=== PATIENT | female | born 1980 | race Hispanic/Latino ===

== ENCOUNTER 2016-09-22 22:58 | Emergency (ER) | payer OTHER ==
[2016-09-22 22:58] VITALS: BMI 25.7
[2016-09-22 23:04] VITALS: RESP 18; TEMP 98.6
--- NOTE | 2016-09-22 23:39 | ED PDOC ---
Arrival/HPI - General Chief Complaint: Female Genitourinary Time Seen by Provider: 09/22/16 23:11 Historian: Patient - History of Present Illness Narrative History of Present Illness (Text): 09/22/16 23:20 Génesis Hurley is a 36 year old female, currently 18 weeks , P:2 A :1, whose past medical history includes seizures (on Topamax), who presents to the ED complaining of scanty vaginal spotting earlier,none now. Patient states tonight when she went to the bathroom she noted some light red vaginal spotting. Patient denies any abdominal pain/cramping, back pain, nausea, vomiting, diarrhea, fever, chills, headache, dizziness, or any other complaints. Time/Duration: Other (tonight) Symptom Onset: Gradual Symptom Course: Unchanged Activities at Onset: Light Context: Home Past Medical History - Provider Review Nursing Documentation Reviewed: Yes - Tetanus Immunization Tetanus Immunization: Unknown - Neurological Hx Seizures: Yes - Psychiatric Hx Depression: No Hx Emotional Abuse: No Hx Physical Abuse: No Hx Substance Use: No Family/Social History - Physician Review Nursing Documentation Reviewed: Yes Family/Social History: Unknown Family HX Smoking Status: no Hx Alcohol Use: No Hx Substance Use: No Hx Substance Use Treatment: No Allergies/Home Meds Allergies/Adverse Reactions: Allergies No Known Allergies Allergy (Verified 08/13/12 18:11) Home Medications: Home Meds Medication Instructions Recorded Confirmed [id number] Every Other Day 08/13/12 08/13/12 Topiramate [Topamax] 200 mg PO 08/13/12 Review of Systems - Physician Review All systems were reviewed & negative as marked: Yes - Review of Systems Constitutional: Normal. absent: Fevers Eyes: Normal ENT: Normal Respiratory: Normal. absent: SOB, Cough Cardiovascular: Normal. absent: Chest Pain Gastrointestinal: Normal. absent: Abdominal Pain, Diarrhea, Nausea, Vomiting Genitourinary Female: Vaginal Bleeding (+vaginal spotting). absent: Frequency, Urine Output Changes Musculoskeletal: Normal. absent: Back Pain, Neck Pain Skin: Normal. absent: Rash Neurological: Normal. absent: Headache, Dizziness Endocrine: Normal Hemo/Lymphatic: Normal Psychiatric: Normal Physical Exam Vital Signs Reviewed: Yes Vital Signs Temp Pulse Resp BP Pulse Ox 09/23/16 02:45 96 H 18 101/66 98 09/22/16 23:00 98.6 F 91 H 18 108/70 99 Temperature: Afebrile Blood Pressure: Normal Pulse: Regular Respiratory Rate: Normal Appearance: Positive for: Well-Appearing, Non-Toxic, Comfortable Pain Distress: None Mental Status: Positive for: Alert and Oriented X 3 - Systems Exam Head: Present: Atraumatic, Normocephalic Pupils: Present: PERRL Extroacular Muscles: Present: EOMI Conjunctiva: Present: Normal Mouth: Present: Moist Mucous Membranes Neck: Present: Normal Range of Motion Respiratory/Chest: Present: Clear to Auscultation, Good Air Exchange. No: Respiratory Distress, Accessory Muscle Use Cardiovascular: Present: Regular Rate and Rhythm, Normal S1, S2. No: Murmurs Abdomen: Present: Normal Bowel Sounds. No: Tenderness, Distention, Peritoneal Signs Back: Present: Normal Inspection Upper Extremity: Present: Normal Inspection. No: Cyanosis, Edema Lower Extremity: Present: Normal Inspection. No: Edema Neurological: Present: GCS=15, CN II-XII Intact, Speech Normal Skin: Present: Warm, Dry, Normal Color. No: Rashes Psychiatric: Present: Alert, Oriented x 3, Normal Insight, Normal Concentration Medical Decision Making ED Course and Treatment: 09/22/16 23:20 Impression: 36 year old female c/o light vaginal spotting tonight Differential Diagnosis included but are not limited to: threatened miscarriage Plan: -- US Transvaginal -- Labs, Beta-HCG, bood type and screen -- Reassess and disposition Progress Notes: 09/23/16 01:05 Reviewed sono, US Transvaginal shows: Evaluation of the pelvis reveals a single intrauterine with a cephalic presentation. The placenta is posterior and free of the cervical os. The cervix measures 4.4 cm in length and is closed. measurements correspond to an estimated gestational age of 18 weeks 0 days. BPD 4 mm AC 11.4 mm HC 14.9 mm FL 2.7 mm cardiac activity is identified with a heart rate of 137 beats per minute. 2.6 cm left ovarian cyst. Right ovary not visualized. IMPRESSION: Single live IUP as above. Limited study. Followup imaging recommended. 09/23/16 02:30 On reevaluation the patient feels better and is in no acute distress. I have discussed the results and plan with the patient, who expresses understanding. Patient given the opportunity to ask question, all questions were answered and there is agreement with the plan to discharge the patient home. Patient is stable for discharge. Patient was instructed to follow up with physician/clinic in 1-2 days or return if symptoms persist/worsen or new concerning symptoms arise. - Lab Interpretations Lab Results: 09/22/16 23:41 09/22/16 23:41 Lab Results 09/23/16 00:20: Blood Type Confirm O POSITIVE 09/23/16 00:00: Blood Type O POSITIVE, Antibody Screen Negative, BBK History Checked No verified bt 09/22/16 23:41: WBC 8.9 D, RBC 3.87, Hgb 11.1 L, Hct 33.6 L, MCV 86.8, MCH 28.7 , MCHC 33.0, RDW 13.0, Plt Count 212, MPV 9.4 09/22/16 23:41: Beta HCG, Quant 13778.00 H 09/22/16 23:41: Sodium 137, Potassium 3.7, Chloride 105, Carbon Dioxide 22, Anion Gap 14, BUN 9, Creatinine 0.6, Est GFR ( Amer) > 60, Est GFR (Non- Af Amer) > 60, Random Glucose 109, Calcium 8.9, Total Bilirubin 0.2, AST 54 H, ALT 67 H, Alkaline Phosphatase 64, Total Protein 6.7, Albumin 3.5, Globulin 3.2 , Albumin/Globulin Ratio 1.1 I have reviewed the lab results: Yes - RAD Interpretation Radiology Orders: 09/22/16 23:27 AGE [US] Stat Underwriting Intern: Radiologist - Scribe Statement The provider has reviewed the documentation as recorded by the Viki Tellez Provider Scribe Attestation: All medical record entries made by the Scribashok were at my direction and personally dictated by me. I have reviewed the chart and agree that the record accurately reflects my personal performance of the history, physical exam, medical decision making, and the department course for this patient. I have also personally directed, reviewed, and agree with the discharge instructions and disposition. Disposition/Present on Arrival - Present on Arrival Any Indicators Present on Arrival: No History of DVT/PE: No History of Uncontrolled Diabetes: No Urinary Catheter: No History of Decub. 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
[2016-09-22 23:56] LABS: HEMOGLOBIN 11.1 g/dL (12.0-16.0); MEAN CELL VOLUME 86.8 fl (80.0-105.0); MEAN CORPUSCULAR HEMOGLOBIN 28.7 pg (25.0-35.0); MEAN PLATELET VOLUME 9.4 fl (7.0-11.0); RBC 3.87 10^6/uL (3.5-6.1); WHITE BLOOD COUNT 8.9 10^3/ul (4.5-11.0)
[2016-09-23 00:07] LABS: ALB/GLOB RATIO 1.1 (1.1-1.8); ALBUMIN 3.5 g/dL (3.0-4.8); ALT/SGPT 67 U/L (7-56); AST/SGOT 54 U/L (15-39); BLOOD UREA NITROGEN 9 mg/dL (7-21); CALCIUM 8.9 mg/dL (8.4-10.5); GFR AFRICAN-AMERICAN > 60; GFR NON-AFRICAN AMERICAN > 60
--- NOTE | 2016-09-23 01:03 | US ---
EXAM: US After First Trimester, Transabdominal CLINICAL HISTORY: 36 years old, female; Signs and symptoms; Lmp or gestational age (in weeks): 05/17/16; Other: Spotting; ; Additional info: Bleeding TECHNIQUE: Real-time transabdominal obstetrical ultrasound of the maternal pelvis and a second or third trimester with image documentation. COMPARISON: No relevant prior studies available. FINDINGS: Evaluation of the pelvis reveals a single intrauterine with a cephalic presentation. The placenta is posterior and free of the cervical os. The cervix measures 4.4 cm in length and is closed. measurements correspond to an estimated gestational age of 18 weeks 0 days. BPD 4 mm AC 11.4 mm HC 14.9 mm FL 2.7 mm cardiac activity is identified with a heart rate of 137 beats per minute. 2.6 cm left ovarian cyst. Right ovary not visualized. IMPRESSION: Single live IUP as above. Limited study. Followup imaging recommended.
[2016-09-23 02:45] VITALS: BP 101/66; PULSE 96; O2SAT 98
== END 2016-09-23 02:45 | disposition home or self-care (01) ==
LOC: ED 22:58
DX: O20.0 Threatened abortion (principal); Z3A.18 18 weeks gestation of pregnancy

== ENCOUNTER 2018-03-21 13:38 | Outpatient (CLI) | payer MEDICAID | END 2018-03-21 13:39 | disposition home or self-care (01) | LOC: RAD 13:38 ==